=== PATIENT | female | born 1965 | race Caucasian/White ===

== ENCOUNTER 2022-12-06 01:18 | Outpatient (CLI) | payer MEDICARE, MEDICAID, SELFPAY ==
--- NOTE | 2022-12-06 07:15 | DI.US_ITS ---
Exam(s) US NEEDLE LOCAL OTHER WO RAD EXAM: left parotid gland mass,ultrasound guided bx,k11.8 COMPARISON: CT CT NECK W CONTRAST from 10/19/2022 TECHNIQUE: Ultrasound performed using standard protocol. FINDINGS: Sonography was provided for Dr. Monsivais during the performance of a left parotid gland biopsy. Glen shearer refer to the procedure report for complete details. There is a 1.7 x 1.4 cm hypoechoic mass in the left parotid gland. DATA REPOSITORY:
--- NOTE | 2022-12-06 11:30 | PAPNONF_PTH ---
PATIENT: Sanna Medina LOC: [facility] U#:[id number] AGE/SX: 57/F ROOM: RE12/06/[address]: Lily Soriano : 1965 BED: DIS: 12/06/2022 SPEC #: [id number] RECD: 12/06/22 13:02 STATUS: REBELRick REAusten #: [id number] NEHA: 12/06/22 11:[address]: Trung Monsivais DEPT: [facility] Cytology RECD BY: Jeanna Sandoval ENTERED: 12/06/22 13:03 SP TYPE: KENYETTA BOYER DR: Lily Soriano Amy B Tissues: 1 - BODY FLUID CYTO-FINE NEEDLE ASPIRATE-[facility] Procedures: BODY FLUID CYTO-FINE NEEDLE ASPIRATE-[facility] Comments: (PATH FNA CONSULT) (REFRIGERATED)
--- NOTE | 2022-12-06 11:53 | W.PROCNOTE ---
Date of service: 12/06/22 Time of Service: 11:53 Procedure Note Date of procedure: 12/06/22 Procedure: Ultrasound-guided FNA, left parotid gland, pathology present Surgeon/Proceduralist/Physician: Trung Monsivais Procedure Diagnosis: Left parotid mass Procedure Indications: Patient has a left parotid mass which she feels arose after her COVID-19 shot. Options were explained to the patient regarding further management. She elected to undergo the above procedure. Consent was filled out and signed prior to procedure performance. Procedure Description: The mass on the left was visualized using ultrasound. The skin overlying the mass was then anesthetized with 1% lidocaine with 1/100,000 epinephrine after prepping and draping her in appropriate fashion. A 25-gauge needle was then advanced into the mass under ultrasound guidance, and multiple passes into the mass were made. The specimen was withdrawn and pathology evaluated for cellular adequacy. They felt that there was adequate cellularity. As such, after ensuring adequate hemostasis, a sterile dressing was applied. The patient tolerated the procedure well. Her vital signs remained stable. She was able to ambulate afterwards without difficulty. She noted no significant discomfort. Facial nerve function was intact bilaterally. She will call with any signs of infection. She will call if she does not hear from you within 1 week. Further care will depend upon the outcome of the biopsy. She had no further questions. She is comfortable with this plan. She may use Tylenol or ibuprofen for any discomfort.
== END 2022-12-06 01:38 ==
LOC: DI 01:20
PROVIDERS: PCP Nurse Practitioner Family; Visit Provider Registered Nurse Maternal Newborn
DX: D11.9 Benign neoplasm of major salivary gland, unspecified (principal)
CPT/HCPCS: 10005; 76942; 88104